=== PATIENT | female | born 1980 ===

== ENCOUNTER 2017-08-24 19:03 | Emergency (ER) | payer SELFPAY ==
[2017-08-24 21:04] LABS: HCG Qualitative,Urine Negative (Negative)
[2017-08-24 21:06] LABS: Bilirubin,Urine NEG (Negative); Blood,Urine LG (Negative); Color,Urine Yellow (Yellow); Mucus,Urine FEW /HPF; Nitrite,Urine NEG (Negative); Protein,Urine <15 mg/dL mg/dL (Negative)
--- NOTE | 2017-08-25 09:33 | Emergency Department Report ---
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 Symptoms: Yes Itching, No Facial Swelling, No Tongue/Oral Swelling, No Breathing Difficulties, No Choking Sensation, No Wheezing/Dyspnea, No Peeling, No Blistering, No Fever, No Lightheaded, No Malaise, No Myalgias Severity: moderate ED Review of Systems ROS: Stated complaint: NECK AND CHEST RASH Other details as noted in HPI Constitutional: denies: chills, fever Eyes: denies: eye pain, eye discharge, vision change ENT: denies: ear pain, throat pain Respiratory: denies: cough, shortness of breath, wheezing Cardiovascular: denies: chest pain, palpitations Endocrine: no symptoms reported Gastrointestinal: denies: abdominal pain, nausea, diarrhea Genitourinary: denies: urgency, dysuria, discharge Musculoskeletal: denies: back pain, joint swelling, arthralgia Skin: rash (neck chest ). denies: lesions Neurological: denies: headache, weakness, paresthesias Psychiatric: denies: anxiety, depression Hematological/Lymphatic: denies: easy bleeding, easy bruising ED Past Medical Hx - Past Medical History Previous Medical History?: Yes Hx Diabetes: Yes - Surgical History Past Surgical History?: No - Social History Smoking Status: Never Smoker Substance Use Type: None - Medications Home Medications: Home Medications Medication Instructions Recorded Confirmed Last Taken Type Triamcinolone Acetonide 1 applicatio TP BID #1 tube 08/25/17 Unknown Rx [Triamcinolone Acetonide Oint 0.5%] diphenhydrAMINE [Benadryl CAP] 25 mg PO Q8HR PRN #30 capsule 08/25/17 Unknown Rx Rash Exam - Exam General: Vital signs noted. No distress. Alert and acting appropriately. HEENT: No Periorbital Edema, No Conjuctival Injection, No Chemosis, No Perioral Edema, No Tongue Edema, No Uvular Edema, No Compromised Airway, No Drooling Lungs: Yes Good Air Exchange, No Wheezes, No Ronchi, No Stridor, No Cough, No Labored Respirations, No Retractions, No Use of Accessory Muscles, No Other Abnormal Lung Sounds Heart: Yes Regular, No Murmur Skin: Yes Urticarial Rash, Yes Maculopapular Rash, Yes Erythema, No Morbilliform rash, No Bulla(e), No Excoriations, No Weeping, No Tenderness, No Edema, No Encrustations, No Other Other: Positive: Abdomen Normal, Neurologic Normal, Musculoskeletal Normal ED Course Vital Signs 08/24/17 19:26 Temperature 98.7 F Pulse Rate 89 Respiratory 18 Rate Blood Pressure 113/72 O2 Sat by Pulse 99 Oximetry ED Medical Decision Making - Medical Decision Making 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 ED Disposition Clinical Impression: Atopic dermatitis Qualifiers: Atopic dermatitis type: atopic neurodermatitis Qualified Code(s): L20.81 - Atopic neurodermatitis Contact dermatitis Qualifiers: Contact dermatitis type: allergic Contact dermatitis trigger: cosmetics Qualified Code(s): L23.2 - Allergic contact dermatitis due to cosmetics Disposition: DC-01 TO HOME OR SELFCARE Is pt being admited?: No Does the pt Need Aspirin: No Condition: Good Instructions: Contact Dermatitis (ED) Prescriptions: diphenhydrAMINE [Benadryl CAP] 25 mg PO Q8HR PRN #30 capsule PRN Reason: Itching Triamcinolone Acetonide [Triamcinolone Acetonide Oint 0.5%] 1 applicatio TP BID #1 tube Referrals: PRIMARY CARE,MD [Primary Care Provider] - 3-5 Days Forms: Work/School Release Form(ED) Time of Disposition: 09:37
[2017-08-25 09:47] VITALS: BP 101/70
== END 2017-08-25 09:46 | disposition home or self-care (01) ==
LOC: ED 19:03
DX: L20.81 Atopic neurodermatitis (principal); L23.2 Allergic contact dermatitis due to cosmetics; E11.9 Type 2 diabetes mellitus without complications
CPT/HCPCS: 81001; 81025; 99283